=== PATIENT | female | born 1990 | race Caucasian/White ===

== ENCOUNTER 2019-05-20 10:48 | Emergency (ER) | payer OTHER, BC ==
[2019-05-20 11:02] VITALS: TEMP 97.9
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
[2019-05-20] MEDS ORDERED: KETOROLAC 60 MG/2 ML VIAL IM STA (12:51)
[2019-05-20 13:09] VITALS: BP 128/73; PULSE 80; RESP 18
== END 2019-05-20 13:09 | disposition home or self-care (01) ==
LOC: EC 10:48
DX: M25.512 Pain in left shoulder (principal); R51 Headache; S40.012A Contusion of left shoulder, initial encounter; S00.83XA Contusion of other part of head, initial encounter; F17.200 Nicotine dependence, unspecified, uncomplicated; V40.5XXA Car driver injured in collision with pedestrian or animal in traffic accident, initial encounter; Y93.89 Activity, other specified; Y92.410 Unspecified street and highway as the place of occurrence of the external cause
CPT/HCPCS: 73000; 99284; 96372; J1885